=== PATIENT | female | born 1945 | race Caucasian/White ===

== ENCOUNTER 2019-07-15 14:26 | Emergency (ER) | payer MEDICARE ==
[~2019-07-15] VITALS: Ht 154.9 cm; Wt 54.7 kg
[~2019-07-15 14:26] MED LIST: CALC-965 PO; GLUC100017 PO; IBUP-24 PO; METH1500 PO; MULT-925 PO; OMEG-166 PO; SYN0.025T PO; TRIA1TAB5 PO; VAL5T PO; VITC500T PO
[2019-07-15] MEDS ORDERED: aspirin 81mg tab.chew PO ONE (14:30)
[2019-07-15 15:09] LABS: BASOPHILS # (AUTO) 0.1 X10'3 (0-0.2); BASOPHILS % (AUTO) 0.6 % (0-1); EOSINOPHILS # (AUTO) 0.6 X10'3 (0-0.9); EOSINOPHILS % (AUTO) 6.4 % (0-6); HEMATOCRIT 40.7 % (35.0-45.0); LYMPHOCYTES % (AUTO) 34.4 % (21-51); MEAN CORPUSCULAR HEMOGLOBIN 31.3 PG (27.0-31.0); MEAN CORPUSCULAR HGB CONC 34.4 g/dL (33.0-36.5); MEAN PLATELET VOLUME 7.4 FL (7.4-10.4); MONOCYTES # (AUTO) 0.6 X10'3 (0-0.9); MONOCYTES % (AUTO) 6.7 % (2-12); NEUTROPHILS # (AUTO) 4.5 X10'3 (1.8-7.7); NEUTROPHILS % (AUTO) 51.9 % (42-75); PLATELET COUNT 322 X10'3 (140-440); RED BLOOD COUNT 4.47 X10'6 (4.20-5.60); RED CELL DISTRIBUTION WIDTH 13.1 % (11.5-14.5); WHITE BLOOD COUNT 8.7 X10'3 (4.5-11.0)
[2019-07-15 15:25] LABS: ALANINE AMINOTRANSFERASE 23 U/L (12-78); ALBUMIN 4.3 G/DL (3.4-5.0); ALBUMIN/GLOBULIN RATIO 1.1 (1.1-1.5); ALKALINE PHOSPHATASE 31 IU/L (46-116); ANION GAP 12 (8-16); ASPARTATE AMINO TRANSFERASE 23 U/L (10-37); BILIRUBIN,TOTAL 0.4 MG/DL (0.1-1.0); BLOOD UREA NITROGEN 6 MG/DL (7-18); BUN/CREATININE RATIO 7.1 (6.6-38.0); CALCIUM 9.8 MG/DL (8.5-10.1); CHLORIDE 102 MMOL/L (99-107); CREATININE 0.84 MG/DL (0.40-0.90); GLUCOSE 139 MG/DL (70-104); POTASSIUM 3.5 MMOL/L (3.5-5.1); SODIUM 140 MMOL/L (135-145); TOTAL CARBON DIOXIDE 26.5 MMOL/L (24-32); TOTAL PROTEIN 8.3 G/DL (6.4-8.2); eGFR 67 ML/MIN
[2019-07-15 15:33] LABS: LIPASE 217 U/L (73-393); MAGNESIUM 1.8 MG/DL (1.5-2.4)
[2019-07-15] MEDS ORDERED: famotidine 20mg tablet PO ONE (16:00)
[2019-07-15] MEDS ORDERED: LIDOcaine Viscous 15ml cup MM ONE (16:00)
[2019-07-15] MEDS ORDERED: mag hydrox/Alum hydrox/simeth 30ml oral suspension PO ONE (16:00)
[2019-07-15] MEDS ORDERED: PANT-47 PO (17:15)
[2019-07-15] MEDS ORDERED: POLY17PO10 PO (17:15)
[2019-07-15 17:41] VITALS: BP 157/78
== END 2019-07-15 17:43 | disposition home or self-care (01) ==
LOC: ER 14:27
DX: K21.9 Gastro-esophageal reflux disease without esophagitis (principal); K59.00 Constipation, unspecified; R10.13 Epigastric pain; G89.29 Other chronic pain; Z90.49 Acquired absence of other specified parts of digestive tract; Z98.51 Tubal ligation status; Z88.5 Allergy status to narcotic agent; Z79.899 Other long term (current) drug therapy
CPT/HCPCS: 36415; 71045; 71250; 74176; 80053; 83690; 83735; 83880; 84484; 85025; 93005; 99285

== ENCOUNTER 2024-12-08 12:28 | Emergency (ER) | payer MEDICARE ==
[~2024-12-08] VITALS: Ht 154.9 cm; Wt 47.5 kg
[~2024-12-08 12:28] MED LIST changes: +DIAZ5TAB22 PO; +PANT-47 PO; -VAL5T PO
[2024-12-08 12:29] VITALS: BP 187/69; PULSE 61; RESP 16; TEMP 98; O2SAT 98
--- NOTE | 2024-12-08 14:43 | RADIOLOGY REPORT ---
EXAM: DI SHOULDER, COMPLETE (MIN 2 VWS) HISTORY: SHOULDER PAIN COMPARISON: None TECHNIQUE: AP and scapular Y views of the right shoulder were performed. FINDINGS: No acute fracture or dislocation are identified about the right shoulder. There is mild acromioclavi cular hypertrophy without significant loss of subacromial space. IMPRESSION: 1. No acute fracture of the right shoulder. 2. Mild acromioclavicular hypertrophy.
[2024-12-08] MEDS ORDERED: HYDR-3965 PO (14:54)
[2024-12-08] MEDS ORDERED: NAPR-56 PO (14:54)
--- NOTE | 2024-12-08 14:55 | Physician Documentation ---
History of Present Illness ~ Chief Complaint: Shoulder pain Stated Complaint: R SHOULDER PAIN Time Seen by MD: 13:37 Primary Medical Doctor: Altagracia Ashraf Source: patient Exam Limitations: no limitations HPI 79-year-old female who is right handed here with right shoulder pain which came on spontaneously no injury or event. She states the pain is difficult to localize but is the front of her shoulder mostly. Pain is worse when she tries to lift her arm over shoulder height. No pre arrival treatment other than her rubbing some topical anti-inflammatory cream on her shoulder. No neck pain. No pain in her hand no numbness or tingling. Tetanus within 5 years?: No Medication Reconciliation Allergies: Coded Allergies: codeine (Verified Allergy, Unknown, 07/15/19) Scheduled Ascorbic Acid* (Vitamin C*), 1 TAB PO DAILY, (Reported) Calcium Carb & Cit/Vitamin D3 (Calcium + D3 Er Tablet), 1 EACH PO DAILY, (Reported) Diazepam* (Valium*), 5 MG PO PRN, (Reported) Glucosamine Sulfate 2KCL (Glucosamine), 1,500 MG PO DAILY, (Reported) Ibuprofen (Advil), 600 MG PO PRN, (Reported) Levothyroxine Sodium* (Synthroid*), 50 MCG PO DAILY, (Reported) Methylsulfonylmethane (Msm), 1,500 MG PO DAILY, (Reported) Multivits W-Ca,Fe,Other Min (Women's Daily Multivitamin), 1 EACH PO DAILY, (Reported) Naproxen (Naproxen), 1 TAB PO Q12H [place]-3/Dha/Epa/Fish Oil (Fish Oil 1,000 Mg Ec Softgel), 1 EACH PO DAILY, (Reported) Pantoprazole Sodium (PROTONIX tablet), 1 TAB PO DAILY Triamterene/Hydrochlorothiazid (Triamterene-Hctz 75-50 Mg Tab), 1 EACH PO DAILY, (Reported) Scheduled PRN Hydrocodone Bit/Acetaminophen 5/325 MG ([place] 5/325 MG), 1 TAB PO TID PRN PRN for pain Past Medical History Past Medical History: Vertigo, Chronic Back Pain Past Surgical History: appendectomy, tubal ligation Alcohol Use: None Drug Use: none Lives In: Home Review of Systems All Other Systems at this time: Reviewed and Negative Physical Exam Vital Signs: Temperature: 98.0, Source: Temporal, Heart Rate: 61, Respiratory Rate: 16, BP: 187/69, Pulse Oximetry: 98, Weight: 47.500 Oxygen Flow Rate: 0 Physical Exam General Appearance: Alert, WD/WN. NAD. HEENT: NCAT, PERRL, EOMI. Neck: Supple, trachea midline. Cardiovascular: RRR. No m/r/g. Lungs: CTAB. Breathing unlabored Extremities: Normal inspection. No edema. Reproducible tenderness over the AC joint of right shoulder normal inspection patient is able to abduct her right arm to shoulder height but not above shoulder height due to pain. Skin: Warm/dry, normal color Neurological: Alert and oriented x4, normal gait. Psychiatric: Affect congruent with mood. Progress Results/Orders Results/Orders Orders - MARK IRAHETA Shoulder, Complete (Min 2 Vws) (12/08/24 13:38) Completed Orders - MARK IRAHETA Shoulder, Complete (Min 2 Vws) (12/08/24 13:38) Vital Signs 12/08/24 12:29 Temp 98.0 Pulse 61 Resp 16 B/P (MAP) 187/69 Pulse Ox 98 O2 Flow Rate 0 Medical Decision Making Differential Dx:Considerations: Include: AC separation, Adhesive capsulitis, arthritis, Bicipital tendonitis, Calcific tendonitis, Cervical disc disease, Contusion, Dislocation, Fracture: Humerus, Fracture: Scapula, Fracture: C lavicle, Gallbladder Disease, Hematoma, Impingement syndrome, Myocardial infarction, Neurovascular Injury, Rotator cuff injury, SC dislocation, Sprain, Subacromial bursitis Departure Time of Disposition: 14:52 Disposition: 01 HOME / SELF CARE / HOMELESS Impression: Primary Impression: Shoulder pain Qualified Codes: M25.511 - Pain in right shoulder Condition: Stable Discharge Instructions: Shoulder Pain Additional Instructions: X-ray was unremarkable follow up with your primary care provider for a referral for physical therapy and a possible MRI to further evaluate. I sent a prescription for some pain medication to your pharmacy as well as an anti- inflammatory. Referrals: NO PRIMARY CARE PROVIDER (PCP) Prescriptions Tramadol HCl (Tramadol HCl) 50 Mg Tablet 1-2 TAB PO BID PRN for pain for 5 Days, #20 TAB dx: SHOULDER PAIN M25.511 Prov: MARK IRAHETA 12/08/24 Naproxen (Naproxen) 500 Mg Tablet 1 TAB PO Q12H, #20 TAB Prov: MARK IRAHETA 12/08/24 Hydrocodone Bit/Acetaminophen 5/325 MG ([place] 5/325 MG) 5 Mg/325 Mg Tablet 1 TAB PO TID PRN PRN for pain for 5 Days, #15 TAB dx: shoulder pain acute M25.519 Prov: MARK IRAHETA 12/08/24 Education Educated: Patient Educated regarding: diagnosis, treatment, need for follow up Signature Scribe Signature: x Attestation: x MARK IRAHETA Dec 08, 2024 14:55
[2024-12-08] MEDS ORDERED: TRAM50TA2 PO (18:25)
== END 2024-12-08 15:01 | disposition home or self-care (01) ==
LOC: ER 12:29
DX: M25.511 Pain in right shoulder (principal); Z90.49 Acquired absence of other specified parts of digestive tract; Z98.51 Tubal ligation status; Z88.5 Allergy status to narcotic agent; Z79.899 Other long term (current) drug therapy
CPT/HCPCS: 73030; 99283

== ENCOUNTER 2025-02-06 10:43 | Emergency (ER) | payer MEDICARE ==
[~2025-02-06] VITALS: Ht 154.9 cm; Wt 49.3 kg
[~2025-02-06 10:43] MED LIST changes: +HYDR-3965 PO
[2025-02-06 10:57] VITALS: TEMP 97.6
--- NOTE | 2025-02-06 11:10 | ELECTROCARDIOGRAPH REPORT ---
[facility] Test Date: 2025-02-06 Test Time: 11:08:34 Pat Name: RUFUS TOWNSEND Department: [facility]- Patient ID: [id number] Room: Gender: F Vascular Technologist: : 1945 Requested By: ANIBAL CASTRO Order Number: [id number] Reading MD: Dr. Eduardo Ashley Measurements Intervals [place] Rate: 61 P: 0 FL: 259 QRS: 266 QRSD: 90 T: 64 QT: 393 QTc: 396 Interpretive Statements Sinus rhythm Prolonged FL interval Left anterior fascicular block Consider right ventricular hypertrophy Electronically Signed On 02-08-2025 21:44:[address] Eduardo Ashley Please click the below link to view image of tracing.
--- NOTE | 2025-02-06 11:28 | RADIOLOGY REPORT ---
CHEST RADIOGRAPH Indication: CP Technique: Single frontal view of the chest was obtained COMPARISON: None FINDINGS: Lines and Tubes: None Lungs: Lungs are hyperinflated suggestive of COPD. No focal airspace consolidation. Pleura: No effusion. No pneumothorax. Cardiomediastinal contours: Unremarkable Bones: Unremarkable IMPRESSION: Lungs are hyperinflated suggestive of COPD.
[2025-02-06 11:59] LABS: MEAN PLATELET VOLUME 7.4 FL (7.4-10.4); RED CELL DISTRIBUTION WIDTH 13.9 % (11.5-14.5)
[2025-02-06 12:23] LABS: CREATININE 0.57 MG/DL (0.40-0.90); PRO BRAIN NATRIURETIC PEPTIDE 311 PG/ML (0-450); TOTAL CARBON DIOXIDE 31.3 MMOL/L (24-32); eCRCL 61 ML/MIN; eGFR > 90 ML/MIN
--- NOTE | 2025-02-06 13:15 | Physician Documentation ---
History of Present Illness ~ Chief Complaint: Dizziness Stated Complaint: VERTIGO Time Seen by MD: 18:45 Primary Medical Doctor: Altagracia Ashraf HPI Patient is seen today with complaints of feeling dizzy for the last couple of days. She states she hit her head the couple of months ago and is not sure if this is related. Reports that the dizziness is intermittent and does not have any exacerbating or alleviating factors.. He has any shortness of breath chest pain or nausea vomiting Day of Onset: Feb 06, 2025 Medication Reconciliation Allergies: Coded Allergies: codeine (Verified Allergy, Unknown, 02/06/25) Scheduled Ascorbic Acid* (Vitamin C*), 1 TAB PO DAILY, (Reported) Calcium Carb & Cit/Vitamin D3 (Calcium + D3 Er Tablet), 1 EACH PO DAILY, (Reported) Diazepam* (Valium*), 5 MG PO PRN, (Reported) Glucosamine Sulfate 2KCL (Glucosamine), 1,500 MG PO DAILY, (Reported) Ibuprofen (Advil), 600 MG PO PRN, (Reported) Levothyroxine Sodium* (Synthroid*), 50 MCG PO DAILY, (Reported) Meclizine HCl (Meclizine HCl), 1 TAB PO Q8H Methylsulfonylmethane (Msm), 1,500 MG PO DAILY, (Reported) Multivits W-Ca,Fe,Other Min (Women's Daily Multivitamin), 1 EACH PO DAILY, (Reported) [place]-3/Dha/Epa/Fish Oil (Fish Oil 1,000 Mg Ec Softgel), 1 EACH PO DAILY, (Reported) Pantoprazole Sodium (PROTONIX tablet), 1 TAB PO DAILY Triamterene/Hydrochlorothiazid (Triamterene-Hctz 75-50 Mg Tab), 1 EACH PO DAILY, (Reported) Scheduled PRN Hydrocodone Bit/Acetaminophen 5/325 MG ([place] 5/325 MG), 1 TAB PO TID PRN PRN for pain Past Medical History Past Medical History: Vertigo, Chronic Back Pain Past Surgical History: appendectomy, tubal ligation Alcohol Use: None Drug Use: none Lives In: Home Review of Systems All Other Systems at this time: Reviewed and Negative ROS As stated above in the HPI, otherwise all systems are reviewed and negative. Physical Exam Vital Signs: Temperature: 97.6, Source: Oral, Heart Rate: 61, Respiratory Rate: 18, BP: 166/80, Pulse Oximetry: 98, Weight: 49.300 Oxygen Flow Rate: 0 Physical Exam General: Alert, no apparent distress. HEENT: PERRL, EOMI, no injection, moist mucous membranes. Neck: Full range of motion. Respiratory: Lungs clear, no respiratory distress. Chest: No accessory muscle use. Cardiovascular: Regular rate and rhythm, no murmurs. Gastrointestinal: Soft, nontender, nondistended. Bowels sounds present. Extremities: Normal range of motion, no deformity. Neurologic: Oriented x4. Psychiatric: Normal mood and affect. Skin: Normal color, warm and dry. No edema, no ecchymosis. Progress Results/Orders Results/Orders Orders - RANDALL LEE FILM DRYING MACHINE OPERATOR Ct Head (02/06/25 18:56) Cult Urine + [place] Ct (02/06/25 20:16) Completed Orders - RANDALL LEE FILM DRYING MACHINE OPERATOR Ct Head (02/06/25 18:56) Meclizine Tablets (Antivert Tablet) (02/06/25 19:25) Ua W/Microscopic, Cult If Ind (02/06/25 19:30) Medications Received in ER Medications (Trade) Dose Ordered Sig/Jessika Route PRN Reason Start Time Stop Time Status Last Admin Dose Admin (Antivert tablet) 12.5 mg ONCE ONCE PO 02/06/25 19:25 02/06/25 19:26 DC 02/06/25 19:58 12.5 MG Vital Signs 02/06/25 02/06/25 02/06/25 02/06/25 10:57 14:41 18:51 18:51 Temp 97.6 Pulse 61 64 61 Resp 18 14 14 B/P (MAP) 166/80 174/98 (123) 178/73 (108) Pulse Ox 98 98 97 O2 Flow Rate 0 Laboratory Tests Test 02/06/25 11:23 02/06/25 19:30 White Blood Count 6.9 Red Blood Count 4.93 Hemoglobin 14.8 Hematocrit 45.1 H Mean Corpuscular Volume 91.4 Mean Corpuscular Hemoglobin 30.0 Mean Corpuscular Hemoglobin Concent 32.9 L Red Cell Distribution Width 13.9 Platelet Count 362 Mean Platelet Volume 7.4 Neutrophils (%) (Auto) 59.3 Lymphocytes (%) (Auto) 31.1 Monocytes (%) (Auto) 7.9 Eosinophils (%) (Auto) 1.2 Basophils (%) (Auto) 0.5 Neutrophils # (Auto) 4.1 Lymphocytes # (Auto) 2.1 Monocytes # (Auto) 0.5 Eosinophils # (Auto) 0.1 Basophils # (Auto) 0.0 CBC Comment Sodium Level 140 Potassium Level 4.2 Chloride Level 103 Carbon Dioxide Level 31.3 Anion Gap 6 L Blood Urea Nitrogen 9 Creatinine 0.57 Estimated GFR/1.73 m2 > 90 BUN/Creatinine Ratio 15.8 Glucose Level 92 Calcium Level 9.0 Troponin I High Sensitivity 7 Pro-B-Type Natriuretic Peptide 311 Albumin 3.8 Chemistry Comments Urine Specimen Description Cln catch midstream Urine Color Yellow Urine Clarity Clear Urine pH 6.5 Urine Specific [place] 1.010 Urine Protein Negative Urine Glucose (UA) Negative Urine Ketones Negative Urine Occult Blood Negative Urine Nitrite Negative Urine Bilirubin Negative Urine Urobilinogen 0.2 Urine Leukocyte Esterase Small H Urine RBC 0-2 Urine WBC 10-20 H Urine Squamous Epithelial Cells Few Urine Transitional Epithelial Cells Few Urine Bacteria Few Urine Culture Indicated Indicated Volume Urine Centrifuged 10 ml Urine Comment Medical Decision Making Findings Patient's primary concern was ongoing dizziness and numbness of the left side of her face secondary to a recent fall. Her CT did not show any signs of a intracranial abnormalities. After urine than that has cleared as well. of Course I offered hospital admission for further evaluation. she declined Differential Dx:Considerations: Include: anemia, CVA, dehydration, dysrhythmia, electrolyte imbalance, encephalopathy, Guillain-[place], hypoglycemia, hypotension, hypovolemia, labyrinthitis, Meniere's disease, myasathenia gravis, myocardial infarction, pulmonary embolus, renal failure, respiratory failure, TIA, VBI, vertigo central, vertigo peripheral, vestibular neuronitis, other Departure Disposition: HOME / SELF CARE / HOMELESS Impression: Primary Impression: Dizziness Additional Impression: Vertigo Discharge Instructions: Dizziness Additional Instructions: As I discussed with the you your CT did not come back with any abnormalities that were concerning. However if you continue to have persistent dizziness you may request further imaging via MRI from your primary care provider .may also request a referral to a neurologist Referrals: NO PRIMARY CARE PROVIDER (PCP) Prescriptions Meclizine HCl (Meclizine HCl) 12.5 Mg Tablet 1 TAB PO Q8H for dizziness for 10 Days, #30 TAB 0 Refills Prov: RANDALL LEE NP 02/06/25 Education Educated: Patient Educated regarding: diagnosis Signature Scribe Signature: h Attestation: Scribed for Randall Lee Manager [employer] by Randall Lee - ELA . 02/06/25 19:24 KINA GEORGE Feb 06, 2025 13:15 RANDALL LEE NP Feb 06, 2025 19:25
--- NOTE | 2025-02-06 20:00 | RADIOLOGY REPORT ---
EXAM: CT CT HEAD INDICATION: head strike with vertigo TECHNIQUE: CT of the head without intravenous contrast. Radiation Dose Information: CT Dose: CTDI volume is 50.71 mGy. Dose-length product is 881.14 mGy*cm The dose indicators for CT are the volume Computed Tomography (CT) Dose Index (CTDIvol) and the Dose Length Product (DLP), and are measured in units of mGy and mGy-cm, respectively. These indicators are not patient dose, but values generated from the CT scanner acquisition factors. The report includes radiation exposure data for exposures received during this examination. COMPARISON: None FINDINGS: Motion and streak artifact degrade fine detail. No acute territorial infarct, intracranial hemorrhage, or mass effect. There are global involutional changes with compensatory prominence of the ventricles and sulci. Patchy periventricular and subcortical white matter hypoattenuation is nonspecific but may be related to small vessel ischemic disease. The orbits are normal. The paranasal sinuses and mastoid air cells are clear. The osseous structures are unremarkable. IMPRESSION: 1. No acute territorial infarct, intracranial hemorrhage, or mass effect. 2. Age-related involutional changes. Chronic microvascular changes. 3. If clinical symptoms persist, MRI may be beneficial in further evaluation.
[2025-02-06 20:07] LABS: LEUKOCYTE ESTERASE ,URINE SMALL (Neg); NITRITES, URINE NEGATIVE (Neg); OCCULT BLOOD,URINE NEGATIVE (Neg)
[2025-02-06 20:14] LABS: UA COLLECTION TYPE CLN CATCH MIDSTREAM
[2025-02-06 20:15] LABS: SQUAMOUS EPITHELIAL CELL,UR FEW /LPF (FEW)
[2025-02-06] MEDS ORDERED: MECL-226 PO (20:16)
[2025-02-06 20:38] VITALS: BP 178/73; PULSE 60; RESP 14; O2SAT 97
== END 2025-02-06 20:40 | disposition home or self-care (01) ==
LOC: ER 10:43
DX: R42 Dizziness and giddiness (principal); G89.29 Other chronic pain; Z88.5 Allergy status to narcotic agent; Z90.49 Acquired absence of other specified parts of digestive tract; Z98.51 Tubal ligation status; Z79.899 Other long term (current) drug therapy
CPT/HCPCS: 36415; 70450; 71045; 80048; 81001; 83880; 84484; 85025; 87088; 93005; 99285; J8597